=== PATIENT | female | born 1995 | race Caucasian/White ===

== ENCOUNTER 2018-10-13 20:13 | Emergency (ER) | payer MEDICAID ==
[~2018-10-13] VITALS: Ht 175.3 cm; Wt 78.7 kg
[~2018-10-13 20:13] MED LIST: LIDOcaine 1% w/EPI 1:100,000 30ml vial (MDV) ONE
[2018-10-13 22:15] VITALS: BP 110/75
== END 2018-10-13 22:17 | disposition home or self-care (01) ==
LOC: ER 20:13
DX: S81.011A Laceration without foreign body, right knee, initial encounter (principal); Z91.041 Radiographic dye allergy status; W26.8XXA Contact with other sharp object(s), not elsewhere classified, initial encounter; Y93.89 Activity, other specified; Y92.89 Other specified places as the place of occurrence of the external cause; Y99.8 Other external cause status
CPT/HCPCS: 12002; 99283; J3490

== ENCOUNTER 2022-05-28 06:17 | Emergency (ER) | payer MEDICAID ==
[~2022-05-28] VITALS: Ht 177.8 cm; Wt 77.7 kg
--- NOTE | 2022-05-28 06:42 | NUR ---
Pt on [facility] alert oriented x4, crying while I'm talking to her. Her chief complaint is left ear pain 12/04.
[2022-05-28] MEDS ORDERED: amoxicillin 250mg capsule PO ONE (06:50)
[2022-05-28] MEDS ORDERED: ondansetron 4mg rapidly disintigrating tab PO ONE (06:50)
[2022-05-28] MEDS ORDERED: ketorolac trometh inj. 60 MG/2 ML VIAL IM ONE (06:50)
[2022-05-28] MEDS ORDERED: HYDROcodone/acetaminophen 5mg/325mg tablet PO ONE (06:50)
[2022-05-28] MEDS ORDERED: IBUP-1984 PO (06:54)
[2022-05-28] MEDS ORDERED: HYDR-3965 PO (06:54)
[2022-05-28] MEDS ORDERED: AMOX500C2 PO (06:54)
--- NOTE | 2022-05-28 07:16 | NUR ---
Patient stated that her boyfriend to pick her up for a ride. Pt was educated about not driving since we gave her [place] for pain. Pt verbalized understnading of all instructions made. Written new prescriptions for antibiotic, norco, and Ibuprofen given to patient. Pt was given work excuse too.
[2022-05-28 07:20] VITALS: BP 133/88
== END 2022-05-28 07:23 | disposition home or self-care (01) ==
LOC: ER 06:18
DX: H66.92 Otitis media, unspecified, left ear (principal); Z91.041 Radiographic dye allergy status; Z98.890 Other specified postprocedural states
CPT/HCPCS: 96372; 99284; J1885

== ENCOUNTER 2022-08-23 21:13 | Emergency (ER) | payer MEDICAID ==
[~2022-08-23] VITALS: Ht 177.8 cm; Wt 77.3 kg
[2022-08-23 21:24] VITALS: BP 110/72
[2022-08-23 22:02] LABS: CLARITY,URINE SLIGHTLY CLOUDY (Clear); COLOR,URINE YELLOW (Yellow); GLUCOSE, URINE NEGATIVE (Neg); KETONES,URINE TRACE mg/dl (Neg); LEUKOCYTE ESTERASE ,URINE TRACE (Neg); NITRITES, URINE POSITIVE (Neg); OCCULT BLOOD,URINE TRACE-INTACT (Neg); PROTEIN,URINE TRACE mg/dl (Neg)
[2022-08-23 22:04] LABS: URINE HCG POSITIVE (NEG)
[2022-08-23 22:08] LABS: UA COLLECTION TYPE CLN CATCH MIDSTREAM
[2022-08-23 22:10] LABS: BACTERIA,URINE 4+ /HPF (Neg); MUCUS STRANDS FEW /LPF (Neg); SQUAMOUS EPITHELIAL CELL,UR FEW /LPF (FEW); WBC,URINE 20-30 /HPF (0-4)
== END 2022-08-23 23:40 | disposition home or self-care (01) ==
LOC: ER 21:14
DX: O26.892 Other specified pregnancy related conditions, second trimester (principal); R10.9 Unspecified abdominal pain; F17.200 Nicotine dependence, unspecified, uncomplicated; Z98.890 Other specified postprocedural states; Z3A.19 19 weeks gestation of pregnancy; Z88.6 Allergy status to analgesic agent
CPT/HCPCS: 76811; 81001; 81025; 87077; 87088; 87186; 99284